=== PATIENT | male | born 1925 | race American Indian/Alaskan Native ===

== ENCOUNTER 2016-05-03 14:10 | Inpatient (IN) | payer MEDICARE ==
[2016-05-03] MEDS ORDERED: PERCOCET 5/325 PO ONE (16:31)
--- NOTE | 2016-05-03 16:31 | XRay Report ---
Right hip 2 views: History: Injury with pain. Findings: There is fracture noted of neck of right femur with impaction at the site of fracture. No dislocation. Impression: Fracture neck femur.
[2016-05-03] MEDS ORDERED: ZOFRAN IV ONE ×2 (17:25→17:42)
[2016-05-03] MEDS ORDERED: SUBLIMAZE IV ONE (17:25)
[2016-05-03] MEDS ORDERED: MORPHINE IV ONE (17:42)
[2016-05-03 17:58] LABS: Basophils % (Auto) 0.2 % (0.0-1.8); Eosinophils % (Auto) 0.1 % (0.0-4.3); Hematocrit 38.6 % (35.5-45.6); Hemoglobin 12.7 gm/dl (11.8-15.2); Mean Corpuscular HGB Conc 33 % (32-34); Mean Corpuscular Hemoglobin 27 pg (28-32); Mean Corpuscular Volume 82 fl (84-94); Platelet Count 241 K/mm3 (140-440); Red Blood Count 4.68 M/mm3 (3.65-5.03); White Blood Count 14.5 K/mm3 (4.5-11.0)
[2016-05-03 18:11] LABS: INR 1.05 (0.87-1.13); Partial Thromboplastin Time 32.1 Sec. (24.2-36.6)
--- NOTE | 2016-05-03 18:14 | Emergency Department Report ---
HPI - General Chief Complaint: Extremity Injury, Lower Time Seen by Provider: 05/03/16 17:10 - HPI HPI: Room 24 The patient is an 89-year-old male presenting with chief complaint of right hip pain. Today at approximately noon the patient went to pick something up from the ground and fell forward. Patient denies loss of consciousness. Family helped patient up he was able to limp into the living room. However when the pain persisted EMS was called and patient was transported to the ED. Patient states his pain was initially a 10/10. The patient was given Percocet in the ED and his pain is decreased to an 8/10. Patient denies other complaints Location: Right hip Duration: Constant since noon Quality: Pain Severity: Moderate Modifying factors: [see above] Context: [see above] Mode of transportation: [not driving] ED Past Medical Hx - Past Medical History Hx Hypertension: Yes Additional medical history: hypothyroid - Surgical History Hx Coronary Stent: Yes - Family History Family history: no significant - Social History Smoking Status: Never Smoker Substance Use Type: None ED Review of Systems ROS: Stated complaint: FALL/PAIN TO RT HIP AND BUTTOCKS Other details as noted in HPI Comment: All other systems reviewed and negative Constitutional: denies: chills, fever Eyes: denies: eye pain, eye discharge, vision change ENT: denies: ear pain, throat pain Respiratory: denies: cough, shortness of breath, wheezing Cardiovascular: denies: chest pain, palpitations Endocrine: no symptoms reported Gastrointestinal: denies: abdominal pain, nausea, diarrhea Genitourinary: denies: urgency, dysuria Musculoskeletal: arthralgia, myalgia Skin: denies: rash, lesions Neurological: denies: headache, weakness, paresthesias Psychiatric: denies: anxiety, depression Hematological/Lymphatic: denies: easy bleeding, easy bruising Physical Exam - Physical Exam Vital Signs: Vital Signs 05/03/16 15:25 Temperature 98.4 F Pulse Rate 78 Respiratory 18 Rate Blood Pressure 187/94 O2 Sat by Pulse 98 Oximetry Physical Exam: GENERAL: The patient is well-developed well-nourished male lying on stretcher not appearing to be in acute distress. [] HEENT: Normocephalic. Atraumatic. Extraocular motions are intact. Patient has moist mucous membranes. NECK: Supple. Trachea midline CHEST/LUNGS: Clear to auscultation. There is no respiratory distress noted. HEART/CARDIOVASCULAR: Regular. There is no tachycardia. There is no gallop rub or murmur. 2+ DP right foot ABDOMEN: Abdomen is soft, nontender. Patient has normal bowel sounds. There is no abdominal distention. SKIN: There is no rash. There is no edema. There is no diaphoresis. NEURO: The patient is awake, alert, and oriented. The patient is cooperative. The patient has normal speech MUSCULOSKELETAL: There is pain in the right hip. The right lower extremity is slightly externally rotated and minimally shorter than the left ED Course Vital Signs 05/03/16 15:25 Temperature 98.4 F Pulse Rate 78 Respiratory 18 Rate Blood Pressure 187/94 O2 Sat by Pulse 98 Oximetry - Consultations Consultation #1: 05/03/[address] Garcia. Will take patient to the OR tomorrow ED Medical Decision Making - Radiology Data Radiology results: image reviewed (right hip x-ray) interpreted by me: Right hip [id number] neck fracture - Differential Diagnosis hip fracture, hip contusion, acetabular fracture, pubic rami fracture Critical care attestation.: If time is entered above; I have spent that time in minutes in the direct care of this critically ill patient, excluding procedure time. ED Disposition Clinical Impression: Fracture of femoral neck, right, Acute right hip pain Disposition: OP ADMITTED IP TO THIS HOSP Is pt being admited?: Yes Does the pt Need Aspirin: No Condition: Fair Time of Disposition: 18:21 (hospitalist paged)
[2016-05-03 18:23] LABS: Anion Gap 19 mmol/L; Blood Urea Nitrogen 20 mg/dL (9-20); Calcium 9.3 mg/dL (8.4-10.2); Carbon Dioxide 28 mmol/L (22-30); Chloride 95.5 mmol/L (98-107); Glucose 112 mg/dL (75-100); Potassium 5.2 mmol/L (3.6-5.0); Sodium 137 mmol/L (137-145)
--- NOTE | 2016-05-03 21:07 | Consultation ---
History of Present Illness - [facility] Consult date: 05/03/16 Consult reason: fracture History of present illness: A 89-year-old man, fell down unable to walk, seen in the emergency room. X- rays showed a subcapital fracture, seen in consultation for fracture management. Past History Past Medical History: hyperthyroidism, hypertension Medications and Allergies Allergies Allergy/AdvReac Type Severity Reaction Status Date / Time No Known Allergies Allergy Verified 01/13/15 11:52 Home Medications Medication Instructions Recorded Confirmed Last Taken Type ISOSORBIDE MONOnitrate [Imdur ER] 60 mg PO QDAY 05/03/16 05/03/16 1 Day Ago History 50 Levothyroxine [Synthroid] 150 mcg PO QAM 05/03/16 05/03/16 1 Day Ago History 50 Metoprolol [Lopressor TAB] 50 mg PO QDAY 05/03/16 05/03/16 1 Day Ago History 50 Review of Systems All systems: negative Physical Examination - Physical exam Eyes: PERRL ENT: Positive: clear oral mucosa Respiratory effort: normal Respiratory: bilateral: CTA Rhythm: regular Heart Sounds: Positive: S1 & S2 General gastrointestinal: Positive: soft, non-tender, non-distended, normal bowel sounds Integumentary: clear, warm, dry Neurologic: Positive: CNII-XII intact, moves all extremities, gait normal. Negative: focal deficits - Hip right Gait: normal Tenderness with palpation: none Pain with motion: other (Right hip with pain in the groin, trochanter region with painful limitation of movement. No neurovascular deficits.) Full ROM: yes ROM: extension: normal ROM: flexion: normal ROM: abduction: normal ROM: adduction: normal ROM: internal rotation: normal ROM: external rotation: normal Strength: extension: 5/5 Strength: flexion: 5/5 Strength: abduction: 5/5 Strength: adduction: 5/5 Strength: internal rotation: 5/5 Strength: external rotation: 5/5 - Cervical Spine Neck pain: none Tenderness with palpation: none Full ROM: yes ROM: flexion: normal ROM: extension: normal ROM: rotation right: normal ROM: rotation left: normal ROM: lateral flexion right: normal ROM: lateral flexion left: normal - Lumbar Spine Back pain: none Tenderness with palpation: none Appearance: normal Full ROM: yes ROM: flexion: normal ROM: extension: normal ROM: rotation right: normal ROM: rotation left: normal ROM: lateral flexion right: normal ROM: lateral flexion left: normal Assessment and Plan - Patient Problems (1) Fracture of femoral neck, right Current Visit: Yes Status: Acute Qualifiers: Encounter type: initial encounter Fracture type: closed Qualified Code(s) : S72.001A - Fracture of unspecified part of neck of right femur, initial encounter for closed fracture Plan to address problem: Hemiarthroplasty, will schedule for 05/04/16
--- NOTE | 2016-05-03 21:54 | History and Physical Report ---
History of Present Illness Date of examination: 05/03/16 Date of admission: 05/03/16 Chief complaint: Pain Rt Hip. History of present illness: The patient is an 89-year-old male presenting with chief complaint of right hip pain. Today at approximately noon the patient went to pick something up from the ground and fell forward. Patient denies loss of consciousness. Family helped patient up he was able to limp into the living room. However when the pain persisted EMS was called and patient was transported to the ED. Patient states his pain was initially a 10/10. The patient was given Percocet in the ED and his pain is decreased to an 8/10. Patient denies other complaints Location: Right hip Duration: Constant since noon Quality: Pain Severity: Moderate Modifying factors: [see above] Context: [see above] Mode of transportation: [not driving] Past History Past Medical History: hypertension, hypothyroidism Medications and Allergies Allergies Allergy/AdvReac Type Severity Reaction Status Date / Time No Known Allergies Allergy Verified 01/13/15 11:52 Active Meds: Active Medications Cefazolin Sodium (Ancef/Sterile Water 2 Gm/20 Ml) 2 gm IV PREOP NR Stop: 05/04/16 23:00 Review of Systems All systems: negative Musculoskeletal: gait dysfunction, fractures, other (Rt Hip pain) Exam - Constitutional Vitals: Temp Pulse Resp BP Pulse Ox 98.5 F 86 18 131/74 97 05/03/16 18:22 05/03/16 18:22 05/03/16 18:22 05/03/16 18:22 05/03/16 18:22 General appearance: Present: no acute distress, well-nourished - EENT Eyes: Present: PERRL ENT: hearing intact, clear oral mucosa - Neck Neck: Present: supple, normal ROM - Respiratory Respiratory effort: normal Respiratory: bilateral: CTA - Cardiovascular Heart Sounds: Present: S1 & S2. Absent: rub, click - Extremities Extremities: pulses symmetrical, No edema, abnormal (Decreased rom at rt hip) Peripheral Pulses: within normal limits - Abdominal General gastrointestinal: Present: soft, non-tender, non-distended, normal bowel sounds Male genitourinary: Present: normal - Integumentary Integumentary: Present: clear, warm, dry - Musculoskeletal Musculoskeletal: gait normal, strength equal bilaterally - Psychiatric Psychiatric: appropriate mood/affect, intact judgment & insight - Neurologic Neurologic: CNII-XII intact, moves all extremities Results - Labs CBC & Chem 7: 05/03/16 17:41 05/03/16 17:41 Labs: Abnormal lab results 05/03/16 05/03/16 Range/Units 17:41 17:41 WBC 14.5 H (4.5-11.0) K/mm3 MCV 82 L (84-94) fl MCH 27 L (28-32) pg RDW 17.0 H (13.2-15.2) % Lymph % (Auto) 4.8 L (13.4-35.0) % Lymph # 0.7 L (1.2-5.4) K/mm3 [place] # 0.9 H (0.0-0.8) K/mm3 Seg Neutrophils % 88.5 H (40.0-70.0) % Seg Neutrophils # 12.9 H (1.8-7.7) K/mm3 Potassium 5.2 H (3.6-5.0) mmol/L Chloride 95.5 L (98-107) mmol/L Creatinine 0.5 L (0.8-1.5) mg/dL Glucose 112 H (75-100) mg/dL Assessment and Plan - Patient Problems (1) Fracture of femoral neck, right Current Visit: Yes Status: Acute Qualifiers: Encounter type: initial encounter Fracture type: closed Qualified Code(s) : S72.001A - Fracture of unspecified part of neck of right femur, initial encounter for closed fracture Plan to address problem: For ORIF in AM (2) HTN (hypertension) Current Visit: Yes Status: Chronic Qualifiers: Hypertension type: essential hypertension Qualified Code(s): I10 - Essential (primary) hypertension Plan to address problem: Cont anti hypertensives (3) Hypothyroidism Current Visit: Yes Status: Chronic Qualifiers: Hypothyroidism type: acquired Qualified Code(s): E03.9 - Hypothyroidism, unspecified Plan to address problem: Home meds to be reconciled (4) DVT prophylaxis Current Visit: Yes Status: Acute Plan to address problem: on lovenox (5) Pain management Current Visit: Yes Status: Acute Plan to address problem: Dilaudid 1 mg q3 prn
[2016-05-03] MEDS ORDERED: TYLENOL PO PRN (22:00)
[2016-05-03] MEDS ORDERED: MILK OF MAGNESIA PO PRN (22:00)
[2016-05-03] MEDS ORDERED: DILAUDID IV PRN (22:00)
[2016-05-03] MEDS ORDERED: ZOFRAN IV PRN (22:00)
[2016-05-03] MEDS ORDERED: ANCEF/STERILE WATER 2 GM/20 ML IV NR (22:00)
[2016-05-03] MEDS ORDERED: D5/0.45NS 1,000 ML IV SCH (22:00)
[2016-05-03] MEDS ORDERED: DULCOLAX PR PRN (22:00)
[2016-05-04] MEDS: SYNTHROID PO SCH (06:02)
[2016-05-04 06:13] LABS: Basophils % (Auto) 0.2 % (0.0-1.8); Eosinophils % (Auto) 0.3 % (0.0-4.3); Hematocrit 40.8 % (35.5-45.6); Hemoglobin 13.5 gm/dl (11.8-15.2); Mean Corpuscular HGB Conc 33 % (32-34); Mean Corpuscular Hemoglobin 27 pg (28-32); Mean Corpuscular Volume 82 fl (84-94); Platelet Count 212 K/mm3 (140-440); Red Blood Count 4.99 M/mm3 (3.65-5.03); White Blood Count 12.6 K/mm3 (4.5-11.0)
[2016-05-04 06:27] LABS: Alanine Aminotransferase 34 units/L (7-56); Albumin 3.7 g/dL (3.9-5); Albumin/Globulin Ratio 0.9 %; Alkaline Phosphatase 123 units/L (35-129); Bilirubin,Total 0.9 mg/dL (0.1-1.2); Blood Urea Nitrogen 15 mg/dL (9-20); Calcium 9.1 mg/dL (8.4-10.2); Carbon Dioxide 25 mmol/L (22-30); Chloride 94.4 mmol/L (98-107); Glucose 137 mg/dL (75-100); Potassium 4.4 mmol/L (3.6-5.0); Sodium 136 mmol/L (137-145); Total Protein 7.6 g/dL (6.3-8.2)
[2016-05-04 06:33] LABS: Anion Gap 21 mmol/L
--- NOTE | 2016-05-04 07:45 | Progress Note ---
Assessment and Plan Assessment and plan: Right femoral neck fracture: - He is going to right hemiarthroplasty this morning - Pain control Hypertension - Continue antihypertensive medications Hypothyroidism - Continue home medications Prophylaxis - On Lovenox Disposition Plan: continue inpatient care History Interval history: Patient was admitted right femoral neck fracture. Patient denied any pain. Patient has dementia. No nursing issues overnight. Hospitalist Physical - Physical exam Narrative exam: Not in cardiopulmonary distress. The patient appeared well nourished and normally developed. Vital signs as documented. Head exam is unremarkable. No scleral icterus . Neck is without jugular venous distension, thyromegaly, or carotid bruits. Lungs are clear to auscultation. Cardiac exam reveals regular rate and Rhythm. First and second heart sounds normal. No murmurs, rubs or gallops. Abdominal exam reveals normal bowel sounds, no masses, no organomegaly and no aortic enlargement. Extremities tenderness on the right hip area . FRONT OFFICE SECRETARY: Alert and oriented 3. 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 - Constitutional Vitals: Temp Pulse Resp BP Pulse Ox 98.2 F 89 18 164/83 97 05/04/16 03:54 05/04/16 03:54 05/04/16 03:54 05/04/16 03:54 05/04/16 03:54 General appearance: Present: no acute distress, well-nourished Results - Labs CBC & Chem 7: 05/04/16 05:18 05/04/16 05:18 Labs: Laboratory Last Values WBC 12.6 K/mm3 (4.5-11.0) H 05/04/16 05:18 RBC 4.99 M/mm3 (3.65-5.03) 05/04/16 05:18 Hgb 13.5 gm/dl (11.8-15.2) 05/04/16 05:18 Hct 40.8 % (35.5-45.6) 05/04/16 05:18 MCV 82 fl (84-94) L 05/04/16 05:18 MCH 27 pg (28-32) L 05/04/16 05:18 MCHC 33 % (32-34) 05/04/16 05:18 RDW 17.0 % (13.2-15.2) H 05/04/16 05:18 Plt Count 212 K/mm3 (140-440) 05/04/16 05:18 Lymph % (Auto) 5.0 % (13.4-35.0) L 05/04/16 05:18 [place] % (Auto) 7.3 % (0.0-7.3) 05/04/16 05:18 Eos % (Auto) 0.3 % (0.0-4.3) 05/04/16 05:18 Baso % (Auto) 0.2 % (0.0-1.8) 05/04/16 05:18 Lymph # 0.6 K/mm3 (1.2-5.4) L 05/04/16 05:18 [place] # 0.9 K/mm3 (0.0-0.8) H 05/04/16 05:18 Eos # 0.0 K/mm3 (0.0-0.4) 05/04/16 05:18 Baso # 0.0 K/mm3 (0.0-0.1) 05/04/16 05:18 Seg Neutrophils % 87.2 % (40.0-70.0) H 05/04/16 05:18 Seg Neutrophils # 10.9 K/mm3 (1.8-7.7) H 05/04/16 05:18 PT 13.6 Sec. (12.2-14.9) 05/03/16 17:50 INR 1.05 (0.87-1.13) 05/03/16 17:50 APTT 32.1 Sec. (24.2-36.6) 05/03/16 17:50 Sodium 136 mmol/L (137-145) L 05/04/16 05:18 Potassium 4.4 mmol/L (3.6-5.0) 05/04/16 05:18 Chloride 94.4 mmol/L (98-107) L 05/04/16 05:18 Carbon Dioxide 25 mmol/L (22-30) 05/04/16 05:18 Anion Gap 21 mmol/L 05/04/16 05:18 BUN 15 mg/dL (9-20) 05/04/16 05:18 Creatinine 0.6 mg/dL (0.8-1.5) L 05/04/16 05:18 Estimated GFR > 60 ml/min 05/04/16 05:18 BUN/Creatinine Ratio 25.00 % 05/04/16 05:18 Glucose 137 mg/dL (75-100) H 05/04/16 05:18 Calcium 9.1 mg/dL (8.4-10.2) 05/04/16 05:18 Total Bilirubin 0.9 mg/dL (0.1-1.2) 05/04/16 05:18 AST 49 units/L (5-40) H 05/04/16 05:18 ALT 34 units/L (7-56) 05/04/16 05:18 Alkaline Phosphatase 123 units/L (35-129) 05/04/16 05:18 Total Protein 7.6 g/dL (6.3-8.2) 05/04/16 05:18 Albumin 3.7 g/dL (3.9-5) L 05/04/16 05:18 Albumin/Globulin Ratio 0.9 % 05/04/16 05:18 Blood Type B POSITIVE 05/03/16 17:50 Antibody Screen Negative 05/03/16 17:50
[2016-05-04] MEDS: LOPRESSOR PO SCH (09:44)
[2016-05-04] MEDS: IMDUR PO SCH (09:44)
[2016-05-04] MEDS ORDERED: LOVENOX SUB-Q SCH (10:00)
--- NOTE | 2016-05-04 12:34 | Anesthesia Consultation ---
Anesthesia Consult and Med Hx Date of service: 05/04/16 - Airway Anesthetic Teeth Evaluation: Partials ROM Head & Neck: Adequate Mental/Hyoid Distance: Adequate Mallampati Class: Class II Intubation Access Assessment: Probably Good - Pulmonary Exam CTA: Yes - Cardiac Exam Cardiac Exam: RRR - Pre-Operative Health Status ASA Pre-Surgery Classification: ASA3 Proposed Anesthetic Plan: General, Spinal - Pulmonary Hx Smoking: Yes (quit 20 years ago) Hx Asthma: No Hx Respiratory Symptoms: No COPD: No Hx Sleep Apnea: No - Cardiovascular System Hx Hypertension: Yes Hx Percutaneous Transluminal Coronary Angioplasty (PTCA): Yes (stent x 1, 10 yrs ago) - Central Nervous System Hx Seizures: No CVA: No - Endocrine Hx Renal Disease: No Hx Cirrhosis: No Hx Thyroid Disease: Yes Hx Hypothyroidism: Yes
[2016-05-04] MEDS ORDERED: PEPCID PO NR (13:00)
--- NOTE | 2016-05-04 13:29 | Admit Criteria Form ---
Admission Criteria Documentation: MUSCULOSKELETAL DISEASE GRG Clinical Indications for Admission to Inpatient Care (Place 'X' for any and all applicable criteria): Hospital admission is needed for appropriate care of the patient because of ANY ONE of the following: [X]I. Fracture, dislocation, or other musculoskeletal injury requiring inpatient care(medical) as indicated by ANY ONE of the following(4)(5)(6)(7) [ ]a) Vertebral fracture requiring observation for instability or neurologic compromise (8) [ ]b) Compartment syndrome (proven or cannot be ruled out during observation level of care) (9) [ ]c) Limb-threatening injury [ ]d) Major injury requiring inpatient stabilization such as traction initiation or external fixation before internal fixation or closure of complex or open fracture [X]e) Major injury requiring inpatient treatment after emergency or observation level care (as appropriate) [ ]f) Severe pain requiring acute inpatient management [ ]II. Newly diagnosed or suspected bone, joint, or orthopedic device infection (e.g., osteomyelitis, septic arthritis) needing ANY ONE of the following(1)(2)(3) [ ]a) IV antibiotics that cannot be initiated in other than inpatient setting (e.g., patient too unstable or home infusion not available) [ ]b) Device removal or replacement [ ]c) Bone or soft tissue debridement [ ]d) Joint drainage (drain placement or repetitive aspirations) [ ]III. Severe rheumatologic disease (e.g., systemic lupus erythematosus, rheumatoid arthritis) with complications or comorbidities (Also use Optimal Recovery Care Criteria or General Recovery Criteria as appropriate on the basis of predominant condition), including ANY ONE of the following(10 )(11)(12)(13) [ ]a) Severe infection (e.g., MOVEMENT THERAPIST infection, sepsis) (14) [ ]b) Respiratory complications, including ANY ONE of the following: [ ]i) Pleural effusion with respiratory compromise [ ]ii) Pulmonary hypertension with congestive failure [ ]iii) Respiratory failure [ ]iv) Pulmonary hemorrhage (15) [ ]c) Hematologic disease, including ANY ONE of the following: [ ]i) Coagulopathy with bleeding [ ]ii) Thrombosis with hypercoagulable state [ ]iii) Thrombotic thrombocytopenic purpura [ ]d) Cerebritis with seizures, psychosis, or other severe abnormalities [ ]e) Vertebral destruction with monitoring needed for cervical myelopathy& possible respiratory compromise [ ]f) Exacerbation that requires inpatient treatment (e.g., intravenous immunosuppression) (16) [ ]g) Acute renal failure [ ]IV. Severe vasculitis with complications or comorbidities (Also use Optimal Recovery Care Criteria or General Recovery Criteria as appropriate on the basis of predominant condition), including ANY ONE of the following(11)(12)(17)(18)(19)(20) [ ]a) MOVEMENT THERAPIST vasculitis with seizures, psychosis, or other severe abnormalities (22) [ ]b) Renal failure (16) [ ]c) Pulmonary hemorrhage (15) [ ]d) Cerebral infarction [ ]e) Gastrointestinal ischemia [ ]f) Gangrene or threatened amputation [ ]g) Exacerbation that requires inpatient treatment (e.g., intravenous immunosuppression) (19)(21) [ ]V. Severe myopathy as indicated by ANY ONE of the following (28)(29) [ ]a) New onset of airway compromise or inability to swallow [ ]b) Respiratory deterioration with observation needed for impending respiratory failure [ ]c) Exacerbation that requires inpatient treatment (e.g., intravenous immunosuppression) [ ]. Severe gout (crystal arthropathy) as indicated by ANY ONE of the following (23)(24) [ ]a) Severe pain requiring acute inpatient management [ ]b) Exacerbation that requires inpatient treatment (e.g., intravenous treatment) [ ]VII.Rhabdomyolysis and ANY ONE of the following (25)(26)(27) [ ]a) Acute renal failure [ ]b) Need for intravenous hydration after emergency or observation level care (as appropriate) [ ]c) Inability to maintain oral hydration [ ]d) Change in mental status [ ]e) Electrolyte abnormality that remains after emergency or observation level care (as appropriate) [ ]VIII Post amputation complication, as indicated by ANY ONE of the following [ ]a) Infection [ ]b) Dehiscence [ ]c) Myodesis failure [ ]IX. Severe pain requiring acute inpatient management as indicated by ALL of the following (30)(31)(32) [ ]a) Continuous or frequent (e.g., every 2 to 4 hrs) parenteral analgesics required [A] [ ]b) Rapid improvement expected from treatment or acute intervention ( e.g., surgery, anesthesia procedure[B] [ ]X. Musculoskeletal Disease and ALL of the following: [ ]a) Symptom or finding for which emergency and observation care have failed or are not considered appropriate (Use General Criteria: Observation Care as appropriate) [ ]b) Presence of ANY ONE of the following [ ]i) A General Admission Criteria [ ]ii) A Pediatric General Admission Criteria The original [facility] content created by [facility] has been revised. The portions of the content which have been revised are identified through the use of italic text or in bold, and [facility] has neither reviewed nor approved the modified material. All other unmodified content is copyright [facility]. Please see references footnoted in the original [facility] edition 2016 Admission Criteria Met: Yes
[2016-05-04] MEDS: NACL 0.9% 1000 ML 1,000 ML IV SCH ×2 (13:33→17:38)
[2016-05-04] MEDS ORDERED: DIPRIVAN 10 MG/ML IV ONE (13:52)
[2016-05-04] MEDS ORDERED: SUBLIMAZE ONE (13:52)
[2016-05-04] MEDS ORDERED: ePHEDrine SULFATE ONE (14:21)
[2016-05-04] MEDS ORDERED: NEOSPORIN GU IR ONE ×2 (14:50)
[2016-05-04] MEDS ORDERED: NACL 0.9% IR ONE ×2 (14:50)
[2016-05-04] MEDS ORDERED: NACL 0.9% 1000 ML 1,000 ML ONE (15:05)
[2016-05-04] MEDS ORDERED: NEO SYNEPHRINE/NS Syringe(OR USE) IV ONE (15:11)
--- NOTE | 2016-05-04 15:17 | Procedure Note ---
Date of procedure: 05/04/16 Pre-op diagnosis: Fx right femoral neck Post-op diagnosis: same Procedure: Right hip hemiarthroplasty/ benjie Surgeon: WENDI JONES Estimated blood loss: 50-100ml Pathology: list Specimen disposition: to lab Condition: stable Disposition: PACU
[2016-05-04] MEDS ORDERED: TORADOL IV PRN (16:53)
[2016-05-04] MEDS ORDERED: PHENERGAN PR PRN (16:53)
[2016-05-04] MEDS ORDERED: TYLENOL PO PRN (16:53)
[2016-05-04] MEDS ORDERED: SODIUM CHLORIDE FLUSH SYRINGE 10 ML IV PRN (16:53)
[2016-05-04] MEDS ORDERED: MILK OF MAGNESIA PO PRN (16:53)
[2016-05-04] MEDS ORDERED: NORCO 5/325 PO PRN (16:53)
[2016-05-04] MEDS ORDERED: MORPHINE IV PRN (16:53)
[2016-05-04] MEDS ORDERED: AMBIEN PO PRN (16:53)
--- NOTE | 2016-05-04 20:05 | Operative Report ---
PREOPERATIVE DIAGNOSIS: Displaced femoral neck fracture, right hip. POSTOPERATIVE DIAGNOSIS: Displaced femoral neck fracture, right hip. OPERATIVE PROCEDURE: Right hip hemiarthroplasty, [place] noncemented. SURGEON: Marta Garcia MD BELT NOTCHER: Angle Kelly CSA. ANESTHESIA: Spinal. BLOOD LOSS: 50 to 100 mL. PROCEDURE IN DETAIL: The patient was taken to surgery suite, satisfactory analgesia obtained with spinal anesthetic. He was positioned on the lateral position, right hip area prepped with ChloraPrep, satisfactorily draped. After confirming correct patient, surgical site, and procedure, incision was made starting at a point distal to the posterior inferior iliac spine extending to the greater trochanter. Incision was deepened and the gluteus was split, retracted proximally and distally. Joint capsule was then incised along the trochanteric line and capsulotomy was done. Femoral neck fracture was identified. Femoral neck was resected at approximately 1 cm proximal to the lesser trochanter. Femoral head remnant to the femoral neck was extracted. Femoral head measured approximately 54 mm in diameter and trial reduction carried out using 54-55 mm femoral head, which appeared giving satisfactory fit and stability. Femoral medullary canal was then reamed and broached to press fit size 8, which appeared giving satisfactory fit. An #8 femoral component was then press fitted. Trial reduction was carried out using a 54 mm femoral head assembly and the hip appeared stable both anteriorly and posteriorly with equalization of leg length. Trial femoral head assembly was then exchanged for a bipolar head assembly, 54 mm outside diameter, 0 neck length, and inside diameter 26 mm femoral head, and was locked in place. Following irrigation of the wound with pulse irrigation system, wound was closed in layers in the standard fashion with 0 Vicryl, #2-0 Vicryl, and hammad. Sterile dressings were applied. The patient was transferred to recovery room in satisfactory condition, tolerated the procedure well, and at the completion of procedure, counts were accurate. JOB# [id number] ADRIANA/KASSI
[2016-05-04] MEDS: COLACE PO SCH (22:12)
[2016-05-04] MEDS: ANCEF/NS 1 GM/50 ML 50 ML IV SCH (22:12)
[2016-05-05] MEDS ORDERED: HALDOL IM ONE (00:24)
[2016-05-05] MEDS: ANCEF/NS 1 GM/50 ML 50 ML IV SCH (06:02)
[2016-05-05] MEDS: SYNTHROID PO SCH (06:03)
[2016-05-05] MEDS: NACL 0.9% 1000 ML 1,000 ML IV SCH (06:03)
[2016-05-05 06:17] LABS: Hematocrit 32.2 % (35.5-45.6); Hemoglobin 10.8 gm/dl (11.8-15.2)
[2016-05-05 06:32] LABS: Anion Gap 19 mmol/L; BUN/Creatinine Ratio 26.66; Blood Urea Nitrogen 16 mg/dL (9-20); Calcium 8.1 mg/dL (8.4-10.2); Carbon Dioxide 20 mmol/L (22-30); Chloride 102.2 mmol/L (98-107); Glucose 117 mg/dL (75-100); Potassium 3.9 mmol/L (3.6-5.0); Sodium 137 mmol/L (137-145)
--- NOTE | 2016-05-05 07:35 | Progress Note ---
Assessment and Plan Assessment and plan: Right femoral neck fracture: - s/p Day 1 right hemiarthroplasty - Pain control Hypertension - Continue antihypertensive medications Hypothyroidism - Continue home medications Prophylaxis - On Lovenox History Interval history: Patient was admitted right femoral neck fracture. Patient has dementia. Patient was lying quietly. Hospitalist Physical - Physical exam Narrative exam: Not in cardiopulmonary distress. The patient appeared well nourished and normally developed. Vital signs as documented. Head exam is unremarkable. No scleral icterus . Neck is without jugular venous distension, thyromegaly, or carotid bruits. Lungs are clear to auscultation. Cardiac exam reveals regular rate and Rhythm. First and second heart sounds normal. No murmurs, rubs or gallops. Abdominal exam reveals normal bowel sounds, no masses, no organomegaly and no aortic enlargement. Extremities tenderness on the right hip area . 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 - Constitutional Vitals: Temp Pulse Resp BP Pulse Ox 98.3 F 110 H 20 150/75 96 05/05/16 01:02 05/05/16 04:35 05/05/16 01:02 05/05/16 04:35 05/05/16 01:02 General appearance: Present: no acute distress, well-nourished Results - Labs CBC & Chem 7: 05/05/16 05:52 05/05/16 05:52 Labs: Laboratory Last Values WBC 12.6 K/mm3 (4.5-11.0) H 05/04/16 05:18 RBC 4.99 M/mm3 (3.65-5.03) 05/04/16 05:18 Hgb 10.8 gm/dl (11.8-15.2) L 05/05/16 05:52 Hct 32.2 % (35.5-45.6) L D 05/05/16 05:52 MCV 82 fl (84-94) L 05/04/16 05:18 MCH 27 pg (28-32) L 05/04/16 05:18 MCHC 33 % (32-34) 05/04/16 05:18 RDW 17.0 % (13.2-15.2) H 05/04/16 05:18 Plt Count 212 K/mm3 (140-440) 05/04/16 05:18 Lymph % (Auto) 5.0 % (13.4-35.0) L 05/04/16 05:18 [place] % (Auto) 7.3 % (0.0-7.3) 05/04/16 05:18 Eos % (Auto) 0.3 % (0.0-4.3) 05/04/16 05:18 Baso % (Auto) 0.2 % (0.0-1.8) 05/04/16 05:18 Lymph # 0.6 K/mm3 (1.2-5.4) L 05/04/16 05:18 [place] # 0.9 K/mm3 (0.0-0.8) H 05/04/16 05:18 Eos # 0.0 K/mm3 (0.0-0.4) 05/04/16 05:18 Baso # 0.0 K/mm3 (0.0-0.1) 05/04/16 05:18 Seg Neutrophils % 87.2 % (40.0-70.0) H 05/04/16 05:18 Seg Neutrophils # 10.9 K/mm3 (1.8-7.7) H 05/04/16 05:18 PT 13.6 Sec. (12.2-14.9) 05/03/16 17:50 INR 1.05 (0.87-1.13) 05/03/16 17:50 APTT 32.1 Sec. (24.2-36.6) 05/03/16 17:50 Sodium 137 mmol/L (137-145) 05/05/16 05:52 Potassium 3.9 mmol/L (3.6-5.0) 05/05/16 05:52 Chloride 102.2 mmol/L (98-107) 05/05/16 05:52 Carbon Dioxide 20 mmol/L (22-30) L 05/05/16 05:52 Anion Gap 19 mmol/L 05/05/16 05:52 BUN 16 mg/dL (9-20) 05/05/16 05:52 Creatinine 0.6 mg/dL (0.8-1.5) L 05/05/16 05:52 Estimated GFR > 60 ml/min 05/05/16 05:52 BUN/Creatinine Ratio 26.66 % 05/05/16 05:52 Glucose 117 mg/dL (75-100) H 05/05/16 05:52 Calcium 8.1 mg/dL (8.4-10.2) L 05/05/16 05:52 Total Bilirubin 0.9 mg/dL (0.1-1.2) 05/04/16 05:18 AST 49 units/L (5-40) H 05/04/16 05:18 ALT 34 units/L (7-56) 05/04/16 05:18 Alkaline Phosphatase 123 units/L (35-129) 05/04/16 05:18 Total Protein 7.6 g/dL (6.3-8.2) 05/04/16 05:18 Albumin 3.7 g/dL (3.9-5) L 05/04/16 05:18 Albumin/Globulin Ratio 0.9 % 05/04/16 05:18 Blood Type B POSITIVE 05/03/16 17:50 Antibody Screen Negative 05/03/16 17:50
[2016-05-05] MEDS: IMDUR PO SCH (09:00)
[2016-05-05] MEDS: THERAGRAN Tab PO SCH (09:00)
[2016-05-05] MEDS: LOPRESSOR PO SCH (09:00)
[2016-05-05] MEDS: LOVENOX SUB-Q SCH (09:00)
[2016-05-05] MEDS: COLACE PO SCH ×2 (09:00→22:31)
[2016-05-05] MEDS ORDERED: ATIVAN IV PRN (13:58)
--- NOTE | 2016-05-05 14:07 | Progress Note ---
Assessment and Plan - Patient Problems (1) Fracture of femoral neck, right Current Visit: Yes Status: Acute Qualifiers: Encounter type: initial encounter Fracture type: closed Qualified Code(s) : S72.001A - Fracture of unspecified part of neck of right femur, initial encounter for closed fracture Plan to address problem: Hemiarthroplasty, will schedule for 05/04/16 Continue with progressive ambulation, weightbearing as tolerated and DVT prophylaxis. May be discharged to [facility]/SNF when bed available, medically cleared. Follow up in office upon discharge. He is to bring copies of x-rays of hip AP lateral view done within 2 days of office visit done at rehabilitation facility if he is coming to office from [facility]/ [facility]. Subjective Date of service: 05/05/16 Interval history: Hemiarthroplasty hip, no complaints today, ambulated with walker. Objective Vital signs: Vital Signs - 12hr 05/05/16 05/05/16 05/05/16 04:35 08:00 09:00 Temperature 98.1 F Pulse Rate 134 H Pulse Rate [ 110 H 134 H From Monitor] Respiratory 20 Rate Blood Pressure 186/76 Blood Pressure 150/75 186/76 [Right Arm] O2 Sat by Pulse 98 Oximetry 05/05/16 10:00 Temperature Pulse Rate Pulse Rate [ From Monitor] Respiratory Rate Blood Pressure Blood Pressure [Right Arm] O2 Sat by Pulse 98 Oximetry - Labs CBC & BMP: 05/07/16 04:56 05/07/16 04:56 Labs: Abnormal lab results 05/05/16 05/05/16 Range/Units 05:52 05:52 Hgb 10.8 L (11.8-15.2) gm/dl Hct 32.2 L D (35.5-45.6) % Carbon Dioxide 20 L (22-30) mmol/L Creatinine 0.6 L (0.8-1.5) mg/dL Glucose 117 H (75-100) mg/dL Calcium 8.1 L (8.4-10.2) mg/dL
[2016-05-06] MEDS: SYNTHROID PO SCH (05:52)
[2016-05-06 06:35] LABS: Basophils % (Auto) 0.1 % (0.0-1.8); Eosinophils % (Auto) 0.9 % (0.0-4.3); Hematocrit 25.9 % (35.5-45.6); Hemoglobin 8.7 gm/dl (11.8-15.2); Mean Corpuscular HGB Conc 34 % (32-34); Mean Corpuscular Hemoglobin 28 pg (28-32); Mean Corpuscular Volume 82 fl (84-94); Platelet Count 153 K/mm3 (140-440); Red Blood Count 3.15 M/mm3 (3.65-5.03); Red Cell Distribution Width 16.5 % (13.2-15.2); White Blood Count 11.2 K/mm3 (4.5-11.0)
[2016-05-06 06:47] LABS: Anion Gap 15 mmol/L; BUN/Creatinine Ratio 23.33; Blood Urea Nitrogen 14 mg/dL (9-20); Calcium 7.9 mg/dL (8.4-10.2); Carbon Dioxide 23 mmol/L (22-30); Chloride 104.4 mmol/L (98-107); Glucose 124 mg/dL (75-100); Potassium 3.7 mmol/L (3.6-5.0); Sodium 139 mmol/L (137-145)
--- NOTE | 2016-05-06 07:44 | Progress Note ---
Assessment and Plan Assessment and plan: Right femoral neck fracture: - s/p Day 1 right hemiarthroplasty - Pain control Hypertension - Continue antihypertensive medications Hypothyroidism - Continue home medications Anemia 2/2 blood loss - AM hemoglobin 8.7 - Will monitor closely transfuse if needed Agitation/ Delirium - getting better - Monitor closely - Will consider Haldol if continued Prophylaxis - On Lovenox History Interval history: Patient was admitted right femoral neck fracture s/p ORIF. Patient has dementia. Patient was lying quietly. Hospitalist Physical - Physical exam Narrative exam: Not in cardiopulmonary distress. The patient appeared well nourished and normally developed. Vital signs as documented. Head exam is unremarkable. No scleral icterus . Neck is without jugular venous distension, thyromegaly, or carotid bruits. Lungs are clear to auscultation. Cardiac exam reveals regular rate and Rhythm. First and second heart sounds normal. No murmurs, rubs or gallops. Abdominal exam reveals normal bowel sounds, no masses, no organomegaly and no aortic enlargement. Extremities tenderness on the right hip area . 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 - Constitutional Vitals: Temp Pulse Resp BP Pulse Ox 98.0 F 96 H 20 158/70 100 05/05/16 22:57 05/05/16 22:57 05/05/16 22:57 05/05/16 22:57 05/05/16 22:57 General appearance: Present: no acute distress, well-nourished Results - Labs CBC & Chem 7: 05/06/16 05:37 05/06/16 05:37 Labs: Laboratory Last Values WBC 11.2 K/mm3 (4.5-11.0) H 05/06/16 05:37 RBC 3.15 M/mm3 (3.65-5.03) L 05/06/16 05:37 Hgb 8.7 gm/dl (11.8-15.2) L 05/06/16 05:37 Hct 25.9 % (35.5-45.6) L D 05/06/16 05:37 MCV 82 fl (84-94) L 05/06/16 05:37 MCH 28 pg (28-32) 05/06/16 05:37 MCHC 34 % (32-34) 05/06/16 05:37 RDW 16.5 % (13.2-15.2) H 05/06/16 05:37 Plt Count 153 K/mm3 (140-440) 05/06/16 05:37 Lymph % (Auto) 5.7 % (13.4-35.0) L 05/06/16 05:37 [place] % (Auto) 10.9 % (0.0-7.3) H 05/06/16 05:37 Eos % (Auto) 0.9 % (0.0-4.3) 05/06/16 05:37 Baso % (Auto) 0.1 % (0.0-1.8) 05/06/16 05:37 Lymph # 0.6 K/mm3 (1.2-5.4) L 05/06/16 05:37 [place] # 1.2 K/mm3 (0.0-0.8) H 05/06/16 05:37 Eos # 0.1 K/mm3 (0.0-0.4) 05/06/16 05:37 Baso # 0.0 K/mm3 (0.0-0.1) 05/06/16 05:37 Seg Neutrophils % 82.4 % (40.0-70.0) H 05/06/16 05:37 Seg Neutrophils # 9.2 K/mm3 (1.8-7.7) H 05/06/16 05:37 PT 13.6 Sec. (12.2-14.9) 05/03/16 17:50 INR 1.05 (0.87-1.13) 05/03/16 17:50 APTT 32.1 Sec. (24.2-36.6) 05/03/16 17:50 Sodium 139 mmol/L (137-145) 05/06/16 05:37 Potassium 3.7 mmol/L (3.6-5.0) 05/06/16 05:37 Chloride 104.4 mmol/L (98-107) 05/06/16 05:37 Carbon Dioxide 23 mmol/L (22-30) 05/06/16 05:37 Anion Gap 15 mmol/L 05/06/16 05:37 BUN 14 mg/dL (9-20) 05/06/16 05:37 Creatinine 0.6 mg/dL (0.8-1.5) L 05/06/16 05:37 Estimated GFR > 60 ml/min 05/06/16 05:37 BUN/Creatinine Ratio 23.33 % 05/06/16 05:37 Glucose 124 mg/dL (75-100) H 05/06/16 05:37 Calcium 7.9 mg/dL (8.4-10.2) L 05/06/16 05:37 Total Bilirubin 0.9 mg/dL (0.1-1.2) 05/04/16 05:18 AST 49 units/L (5-40) H 05/04/16 05:18 ALT 34 units/L (7-56) 05/04/16 05:18 Alkaline Phosphatase 123 units/L (35-129) 05/04/16 05:18 Total Protein 7.6 g/dL (6.3-8.2) 05/04/16 05:18 Albumin 3.7 g/dL (3.9-5) L 05/04/16 05:18 Albumin/Globulin Ratio 0.9 % 05/04/16 05:18 Blood Type B POSITIVE 05/03/16 17:50 Antibody Screen Negative 05/03/16 17:50 Hemoglobin dropped down to 8.7
[2016-05-06] MEDS: COLACE PO SCH ×2 (09:01→21:15)
[2016-05-06] MEDS: IMDUR PO SCH (09:01)
[2016-05-06] MEDS: LOPRESSOR PO SCH (09:02)
[2016-05-06] MEDS: LOVENOX SUB-Q SCH (09:02)
[2016-05-06] MEDS: THERAGRAN Tab PO SCH (09:03)
[2016-05-07] MEDS: SYNTHROID PO SCH (05:05)
[2016-05-07 05:48] LABS: Hematocrit 24.5 % (35.5-45.6); Hemoglobin 8.3 gm/dl (11.8-15.2)
[2016-05-07 05:56] LABS: Blood Urea Nitrogen 15 mg/dL (9-20); Calcium 8.1 mg/dL (8.4-10.2); Carbon Dioxide 24 mmol/L (22-30); Chloride 103.4 mmol/L (98-107); Glucose 113 mg/dL (75-100); Potassium 3.7 mmol/L (3.6-5.0); Sodium 139 mmol/L (137-145)
[2016-05-07 06:00] LABS: Anion Gap 15 mmol/L
--- NOTE | 2016-05-07 07:54 | Progress Note ---
Assessment and Plan Assessment and plan: Right femoral neck fracture: - s/p Day 3 right hemiarthroplasty - Pain control Hypertension - Continue antihypertensive medications Hypothyroidism - Continue home medications Anemia 2/2 blood loss - AM hemoglobin 8.3 - Will monitor closely transfuse if needed Agitation/ Delirium - resolved Prophylaxis - On Lovenox Disposition Plan: Will discharge with home health tomorrow History Interval history: Patient was admitted right femoral neck fracture s/p ORIF. Patient has dementia. Patient stated he is doing well. Hospitalist Physical - Physical exam Narrative exam: Not in cardiopulmonary distress. The patient appeared well nourished and normally developed. Vital signs as documented. Head exam is unremarkable. No scleral icterus . Neck is without jugular venous distension, thyromegaly, or carotid bruits. Lungs are clear to auscultation. Cardiac exam reveals regular rate and Rhythm. First and second heart sounds normal. No murmurs, rubs or gallops. Abdominal exam reveals normal bowel sounds, no masses, no organomegaly and no aortic enlargement. Extremities mild tenderness on the right hip area, clean dressing on the right hip . 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 - Constitutional Vitals: Temp Pulse Resp BP Pulse Ox 98.3 F 79 20 144/62 100 05/07/16 00:00 05/07/16 00:00 05/07/16 00:00 05/07/16 00:00 05/07/16 00:00 General appearance: Present: no acute distress, well-nourished Results - Labs CBC & Chem 7: 05/07/16 04:56 05/07/16 04:56 Labs: Laboratory Last Values WBC 11.2 K/mm3 (4.5-11.0) H 05/06/16 05:37 RBC 3.15 M/mm3 (3.65-5.03) L 05/06/16 05:37 Hgb 8.3 gm/dl (11.8-15.2) L 05/07/16 04:56 Hct 24.5 % (35.5-45.6) L 05/07/16 04:56 MCV 82 fl (84-94) L 05/06/16 05:37 MCH 28 pg (28-32) 05/06/16 05:37 MCHC 34 % (32-34) 05/06/16 05:37 RDW 16.5 % (13.2-15.2) H 05/06/16 05:37 Plt Count 153 K/mm3 (140-440) 05/06/16 05:37 Lymph % (Auto) 5.7 % (13.4-35.0) L 05/06/16 05:37 [place] % (Auto) 10.9 % (0.0-7.3) H 05/06/16 05:37 Eos % (Auto) 0.9 % (0.0-4.3) 05/06/16 05:37 Baso % (Auto) 0.1 % (0.0-1.8) 05/06/16 05:37 Lymph # 0.6 K/mm3 (1.2-5.4) L 05/06/16 05:37 [place] # 1.2 K/mm3 (0.0-0.8) H 05/06/16 05:37 Eos # 0.1 K/mm3 (0.0-0.4) 05/06/16 05:37 Baso # 0.0 K/mm3 (0.0-0.1) 05/06/16 05:37 Seg Neutrophils % 82.4 % (40.0-70.0) H 05/06/16 05:37 Seg Neutrophils # 9.2 K/mm3 (1.8-7.7) H 05/06/16 05:37 PT 13.6 Sec. (12.2-14.9) 05/03/16 17:50 INR 1.05 (0.87-1.13) 05/03/16 17:50 APTT 32.1 Sec. (24.2-36.6) 05/03/16 17:50 Sodium 139 mmol/L (137-145) 05/07/16 04:56 Potassium 3.7 mmol/L (3.6-5.0) 05/07/16 04:56 Chloride 103.4 mmol/L (98-107) 05/07/16 04:56 Carbon Dioxide 24 mmol/L (22-30) 05/07/16 04:56 Anion Gap 15 mmol/L 05/07/16 04:56 BUN 15 mg/dL (9-20) 05/07/16 04:56 Creatinine 0.5 mg/dL (0.8-1.5) L 05/07/16 04:56 Estimated GFR > 60 ml/min 05/07/16 04:56 BUN/Creatinine Ratio 30.00 % 05/07/16 04:56 Glucose 113 mg/dL (75-100) H 05/07/16 04:56 Calcium 8.1 mg/dL (8.4-10.2) L 05/07/16 04:56 Total Bilirubin 0.9 mg/dL (0.1-1.2) 05/04/16 05:18 AST 49 units/L (5-40) H 05/04/16 05:18 ALT 34 units/L (7-56) 05/04/16 05:18 Alkaline Phosphatase 123 units/L (35-129) 05/04/16 05:18 Total Protein 7.6 g/dL (6.3-8.2) 05/04/16 05:18 Albumin 3.7 g/dL (3.9-5) L 05/04/16 05:18 Albumin/Globulin Ratio 0.9 % 05/04/16 05:18 Blood Type B POSITIVE 05/03/16 17:50 Antibody Screen Negative 05/03/16 17:50
[2016-05-07] MEDS: THERAGRAN Tab PO SCH (09:49)
[2016-05-07] MEDS: COLACE PO SCH ×2 (09:49→22:08)
[2016-05-07] MEDS: IMDUR PO SCH (09:50)
[2016-05-07] MEDS: LOVENOX SUB-Q SCH (09:52)
[2016-05-07] MEDS: LOPRESSOR PO SCH (09:52)
[2016-05-08 05:04] LABS: Blood Urea Nitrogen 18 mg/dL (9-20); Calcium 7.9 mg/dL (8.4-10.2); Carbon Dioxide 24 mmol/L (22-30); Chloride 104.2 mmol/L (98-107); Glucose 108 mg/dL (75-100); Potassium 3.8 mmol/L (3.6-5.0); Sodium 139 mmol/L (137-145)
[2016-05-08 05:10] LABS: Anion Gap 15 mmol/L
[2016-05-08 05:15] LABS: Hematocrit 22.5 % (35.5-45.6); Hemoglobin 7.5 gm/dl (11.8-15.2)
[2016-05-08] MEDS: SYNTHROID PO SCH (05:22)
[2016-05-08] MEDS: LOVENOX SUB-Q SCH (09:03)
[2016-05-08] MEDS: LOPRESSOR PO SCH (09:04)
[2016-05-08] MEDS: COLACE PO SCH (09:04)
[2016-05-08] MEDS: THERAGRAN Tab PO SCH (09:04)
[2016-05-08] MEDS: IMDUR PO SCH (09:04)
[2016-05-08 10:56] VITALS: BP 145/67
--- NOTE | 2016-05-08 13:31 | Progress Note ---
Assessment and Plan - Patient Problems (1) Fracture of femoral neck, right Current Visit: Yes Status: Acute Qualifiers: Encounter type: initial encounter Fracture type: closed Qualified Code(s) : S72.001A - Fracture of unspecified part of neck of right femur, initial encounter for closed fracture Plan to address problem: Hemiarthroplasty, will schedule for 05/04/16 Continue with progressive ambulation, weightbearing as tolerated and DVT prophylaxis. May be discharged to [facility]/SNF when bed available, medically cleared. Follow up in office upon discharge. He is to bring copies of x-rays of hip AP lateral view done within 2 days of office visit done at rehabilitation facility if he is coming to office from [facility]/ SNF. Subjective Date of service: 05/08/16 Interval history: Hemiarthroplasty hip, no complaints today, ambulated with walker. Objective Vital signs: Vital Signs - 12hr 05/08/16 05/08/16 05/08/16 08:00 09:04 10:45 Temperature 96.5 F L Pulse Rate 76 Pulse Rate [ 66 Apical] Pulse Rate [ 76 Right Brachial] Respiratory 20 16 Rate Blood Pressure 156/71 Blood Pressure 156/71 145/67 [Right Arm] O2 Sat by Pulse 100 Oximetry - Labs CBC & BMP: 05/08/16 03:58 05/08/16 03:58 Labs: Abnormal lab results 05/08/16 05/08/16 Range/Units 03:58 03:58 Hgb 7.5 L (11.8-15.2) gm/dl Hct 22.5 L (35.5-45.6) % Creatinine 0.5 L (0.8-1.5) mg/dL Glucose 108 H (75-100) mg/dL Calcium 7.9 L (8.4-10.2) mg/dL
--- NOTE | 2016-05-08 13:36 | Discharge Summary ---
Providers - Providers Date of Admission: 05/03/16 22:00 Date of discharge: 05/08/16 Attending physician: GERARD COELHO MD 05/04/16 16:53 Consult to Case Management [CONS] Routine Services Needed at Discharge: Fueler Notified:: CUSTOMS BROKERoracle scm consultant Therapy Evaluation and Treat [CONS] Routine Comment: avoid flexion, add, int rotation of operative hip/ Reason For Exam: post op/ Weight bearing status?: Full wt bearing 05/08/16 12:54 Consult Acute Rehabilitation [CONS] Routine Consulting Provider: MI APARICIO Reason For Exam: s/p hip fracture Primary care physician: CERTIFIED PERSONAL TRAINER Hospitalization Reason for admission: Rt femoral neck fracture Condition: Stable Pertinent studies: Hip x-ray Hospital course: Patient was admitted for right femoral neck fracture and surgical fixation was done by orthopedics. Patient developed anemia but he is not to the level of needing transfusion. Patient is stable to transfer to the acute rehab. Disposition: DC/TX INPT REHAB FACILITY Time spent for discharge: 31 minutes Core Measure Documentation - Palliative Care Palliative Care/ Comfort Measures: Not Applicable - Core Measures Any of the following diagnoses?: none Exam - Physical Exam Narrative exam: Not in cardiopulmonary distress. The patient appeared well nourished and normally developed. Vital signs as documented. Head exam is unremarkable. No scleral icterus . Neck is without jugular venous distension, thyromegaly, or carotid bruits. Lungs are clear to auscultation. Cardiac exam reveals regular rate and Rhythm. First and second heart sounds normal. No murmurs, rubs or gallops. Abdominal exam reveals normal bowel sounds, no masses, no organomegaly and no aortic enlargement. Extremities swelling on the right hip area, clean dressing on the right hip . 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 - Constitutional Vitals: Temp Pulse Resp BP Pulse Ox 96.5 F L 66 16 145/67 100 05/08/16 08:00 05/08/16 10:45 05/08/16 10:45 05/08/16 10:45 05/08/16 08:00 Plan Activity: no restrictions Diet: low cholesterol, low salt Follow up with: PAZ PHILLIPS MD [Primary Care Provider] - 3-5 Days
--- NOTE | 2016-05-08 16:17 | Consultation ---
History of Present Illness - Reason for Consult Consult date: 05/08/16 Evaluate for Acute IRU - History of Present Illness 89 y.o. male who reports fall in his driveway at home reaching for lettuce. Pt was found to have an impacted right femoral neck fracture; taken for right hip hemiarthroplasty on 05/03. Post-op course significant for acute blood loss anemia; H/H on admission, 13.5/40.8; 7.5/22.5 on today. Pt also with intermittent confusion and fluctuating BP; SBP ranging from 107-186. Per PT, pt with brief near syncopal episode during gait training; vitals stable when checked. Consult placed for post-acute placement recommendations. Past History Past Medical History: hyperthyroidism, hypertension Past Surgical History: hernia repair, total hip replacement Social history: , lives with family. denies: smoking, alcohol abuse Family history: diabetes, hypertension Medications and Allergies Allergies Allergy/AdvReac Type Severity Reaction Status Date / Time No Known Allergies Allergy Verified 01/13/15 11:52 Home Medications Medication Instructions Recorded Confirmed Last Taken Type ISOSORBIDE MONOnitrate [Imdur ER] 60 mg PO QDAY 05/03/16 05/08/16 05/08/16 09: 00 History Levothyroxine [Synthroid] 150 mcg PO QAM 05/03/16 05/08/16 05/08/16 09:00 History Metoprolol [Lopressor TAB] 50 mg PO QDAY 05/03/16 05/08/16 05/08/16 09:00 History Docusate Sodium [Colace CAP] 100 mg PO BID capsule 05/08/16 05/08/16 05/08/16 09:00 Rx Multivitamin Tab [Multiple Vitamin 1 each PO QDAY tablet 05/08/16 05/08/16 09:00 Rx TAB (Theragran)] Active Meds: Active Medications Acetaminophen (Tylenol) 650 mg PO Q4H PRN PRN Reason: Pain MILD(1-3)/Fever >100.5/FARLEY Acetaminophen/Hydrocodone Bitart ([place] 5/325) 1 each PO Q6H PRN PRN Reason: Pain, Moderate (4-6) Last Admin: 05/07/16 09:48 Dose: 1 each Bisacodyl (Dulcolax) 10 mg [place] QDAY PRN PRN Reason: Constipation unrelieved by MOM Docusate Sodium (Colace) 100 mg PO BID [facility] Last Admin: 05/08/16 09:04 Dose: 100 mg Enoxaparin Sodium (Lovenox) 40 mg SUB-Q QDAY [facility] Last Admin: 05/08/16 09:03 Dose: 40 mg Dextrose/Sodium Chloride (D5/0.45ns) 1,000 mls @ 75 mls/hr IV DIRECT [facility] Last Admin: 05/04/16 02:00 Dose: 75 mls/hr Sodium Chloride (Nacl 0.9% 1000 Ml) 1,000 mls @ 75 mls/hr IV DIRECT [facility] Last Admin: 05/05/16 06:03 Dose: 75 mls/hr Isosorbide Mononitrate (Imdur) 60 mg PO QDAY [facility] Last Admin: 05/08/16 09:04 Dose: 60 mg Ketorolac Tromethamine (Toradol) 15 mg IV Q6H PRN PRN Reason: Pain, Mild (1-3) Stop: 05/09/16 16:52 Last Admin: 05/07/16 05:05 Dose: 15 mg Levothyroxine Sodium (Synthroid) 150 mcg PO QAM@0600 [facility] Last Admin: 05/08/16 05:22 Dose: 150 mcg Lorazepam (Ativan) 1 mg IV Q4H PRN PRN Reason: Agitation Magnesium Hydroxide (Milk Of Magnesia) 30 ml PO Q4H PRN PRN Reason: Constipation Metoprolol Tartrate (Lopressor) 50 mg PO QDAY [facility] Last Admin: 05/08/16 09:04 Dose: 50 mg Morphine Sulfate (Morphine) 2 mg IV Q4H PRN PRN Reason: Pain, Moderate (4-6) Last Admin: 05/05/16 06:04 Dose: 2 mg Multivitamins (Theragran Tab) 1 each PO QDAY [facility] Last Admin: 05/08/16 09:04 Dose: 1 each Ondansetron HCl (Zofran) 4 mg IV Q3H PRN PRN Reason: N/V unrelieved by Reglan Last Admin: 05/04/16 02:50 Dose: 4 mg Promethazine HCl (Phenergan) 25 mg [place] Q6H PRN PRN Reason: Nausea And Vomiting Sodium Chloride (Sodium Chloride Flush Syringe 10 Ml) 10 ml IV PRN PRN PRN Reason: LINE FLUSH Zolpidem Tartrate (Ambien) 5 mg PO QHS PRN PRN Reason: Sleep Last Admin: 05/07/16 22:08 Dose: 5 mg Review of Systems All systems: negative Ears, nose, mouth and throat: no headache Cardiovascular: lightheadedness (during gait training with PT), no chest pain Respiratory: no cough, no shortness of breath Gastrointestinal: no nausea, no vomiting, no constipation Genitourinary Male: no dysuria Exam - Constitutional Vitals: Vital Signs - 12hr 05/08/16 05/08/16 05/08/16 08:00 09:04 10:45 Temperature 96.5 F L Pulse Rate 76 Pulse Rate [ 66 Apical] Pulse Rate [ 76 Right Brachial] Respiratory 20 16 Rate Blood Pressure 156/71 Blood Pressure 156/71 145/67 [Right Arm] O2 Sat by Pulse 100 Oximetry General appearance: no acute distress, other (sitting up in bed) - EENT Eyes: EOM intact ENT: hearing intact - Neck Neck: supple, normal ROM - Respiratory Respiratory effort: normal Respiratory: bilateral: CTA - Cardiovascular Rhythm: regular Heart Sounds: Present: S1 & S2 - Extremities Extremities: No edema Extremity abnormal: other (hammad to right hip; no acute drainage) - Gastrointestinal General gastrointestinal: Present: soft, non-tender, non-distended, normal bowel sounds - Musculoskeletal Musculoskeletal: right sided weakness (intact ankle DF/PF; knee/hip deferred) - Neurologic Neurologic: CNII-XII intact, other (sensation intact) - Psychiatric Psychiatric: appropriate mood/affect, intact judgment & insight, memory intact, cooperative - Allied health notes Allied health notes reviewed: PT (modA for transfers and gait, 37 feet with RW) FIMS assesment as documented by PT/OT/ST: Locomotion- walk/wheelchair Ambulation Distance 50 - Labs CBC & Chem 7: 05/08/16 03:58 05/08/16 03:58 Labs: Laboratory Results - last 72 hr 05/06/16 05/06/16 05/07/16 05:37 05:37 04:56 WBC 11.2 H RBC 3.15 L Hgb 8.7 L 8.3 L Hct 25.9 L D 24.5 L MCV 82 L MCH 28 MCHC 34 RDW 16.5 H Plt Count 153 Lymph % (Auto) 5.7 L [place] % (Auto) 10.9 H Eos % (Auto) 0.9 Baso % (Auto) 0.1 Lymph # 0.6 L [place] # 1.2 H Eos # 0.1 Baso # 0.0 Seg Neutrophils % 82.4 H Seg Neutrophils # 9.2 H Sodium 139 Potassium 3.7 Chloride 104.4 Carbon Dioxide 23 Anion Gap 15 BUN 14 Creatinine 0.6 L Estimated GFR > 60 BUN/Creatinine Ratio 23.33 Glucose 124 H Calcium 7.9 L 05/07/16 05/08/16 05/08/16 04:56 03:58 03:58 WBC RBC Hgb 7.5 L Hct 22.5 L MCV MCH MCHC RDW Plt Count Lymph % (Auto) [place] % (Auto) Eos % (Auto) Baso % (Auto) Lymph # [place] # Eos # Baso # Seg Neutrophils % Seg Neutrophils # Sodium 139 139 Potassium 3.7 3.8 Chloride 103.4 104.2 Carbon Dioxide 24 24 Anion Gap 15 15 BUN 15 18 Creatinine 0.5 L 0.5 L Estimated GFR > 60 > 60 BUN/Creatinine Ratio 30.00 36.00 Glucose 113 H 108 H Calcium 8.1 L 7.9 L Assessment and Plan Patient was assessed and evaluated for Acute Inpatient Rehab Unit. 89 y.o. male s/p fall; right femoral neck fracture, s/p right LUCAS. Post-op blood loss anemia, uncontrolled hypertension, near syncope, gait dysfunction. Rehab options discussed with patient. Pt is noted to have ongoing medical needs which warrant ongoing medical supervision, as well as, functional deficits s/p hip fracture. Pt would benefit from IRU course to address impaired balance, decreased safety, decreased strength, decline in functional independence. Pt has been participating well with PT and is thought to be able to tolerate 3 hours of therapy/day, 5 days/week. Pt was previously independent with functional mobility and self cares prior to admission and goal is to return home with as independently as possible. Potential barriers/ complications that would currently prevent a safe return home or transfer to lower level of care include near syncopal episode, acute blood loss anemia, fluctuating blood pressure, assistance required for mobility/self cares. Pt has good rehab potential in IRU setting, good overall medical prognosis, is motivated to participate, and has good family support with high likelihood of returning to the community at discharge. Pt will need close ongoing medical management for blood pressure; follow H/H and transfuse if needed; pain control ; bowel regimen. Pt is tentative for transfer to IRU on today. - Patient Problems (1) Fracture of femoral neck, right Status: Acute Qualifiers: Encounter type: initial encounter Fracture type: closed Qualified Code(s) : S72.001A - Fracture of unspecified part of neck of right femur, initial encounter for closed fracture (2) S/P hip hemiarthroplasty Status: Acute (3) Unsteady gait Status: Acute (4) Acute blood loss as cause of postoperative anemia Status: Acute (5) HTN (hypertension) Status: Chronic Qualifiers: Hypertension type: essential hypertension Qualified Code(s): I10 - Essential (primary) hypertension
== END 2016-05-08 16:40 | DRG 470 ==
LOC: ED 14:10 → 2B-SURG 22:00
PROVIDERS: ADMIT Internal Medicine; ATTEND Internal Medicine
PROC: 0SRR0JZ Replacement of Right Hip Joint, Femoral Surface with Synthetic Substitute, Open Approach (ICD-10-PCS; principal; 2016-05-03)
DX: S72.001A Fracture of unspecified part of neck of right femur, initial encounter for closed fracture (principal); D62 Acute posthemorrhagic anemia; E03.9 Hypothyroidism, unspecified; I10 Essential (primary) hypertension; F03.90 Unspecified dementia, unspecified severity, without behavioral disturbance, psychotic disturbance, mood disturbance, and anxiety; Z83.3 Family history of diabetes mellitus; Z82.49 Family history of ischemic heart disease and other diseases of the circulatory system; Z95.5 Presence of coronary angioplasty implant and graft; Z87.891 Personal history of nicotine dependence; W19.XXXA Unspecified fall, initial encounter; Y93.89 Activity, other specified; Y92.89 Other specified places as the place of occurrence of the external cause; Y99.8 Other external cause status
CPT/HCPCS: 36415; 80048; 80053; 85014; 85018; 85025; 85610; 85730; 86850; 86900; 86901; 88304; 88311; 93005; 93010; 96374; 96375; A4217; C1776; J0690; J1170; J1630; J1650; J1885; J2270; J2370; J2405; J2704; J3010; J7030